=== PATIENT | female | born 1960 | race Caucasian/White ===

== ENCOUNTER 2017-01-21 17:01 | Emergency (ER) | payer OTHER ==
[~2017-01-21] VITALS: Ht 152.4 cm; Wt 93.5 kg
[2017-01-21 17:14] VITALS: BP 144/77; PULSE 92; TEMP 98
[2017-01-21] MEDS ORDERED: EFFEXOR 75M75 MG/TAB PO (17:40)
[2017-01-21] MEDS ORDERED: PRINIVIL20 MG PO (17:40)
[2017-01-21] MEDS ORDERED: VIVLODEX10 MG PO (17:41)
[2017-01-21] MEDS ORDERED: MOTRIN 800800 MG/TAB PO ×2 (17:44→17:59)
[2017-01-21] MEDS ORDERED: FLEXERIL 1010 MG/TAB PO ×2 (17:44→17:59)
== END 2017-01-21 18:03 | disposition home or self-care (01) ==
LOC: COL.ER 17:01
DX: S16.1XXA Strain of muscle, fascia and tendon at neck level, initial encounter (principal); S29.012A Strain of muscle and tendon of back wall of thorax, initial encounter; V43.52XA Car driver injured in collision with other type car in traffic accident, initial encounter; Y92.481 Parking lot as the place of occurrence of the external cause; R40.2412 Glasgow coma scale score 13-15, at arrival to emergency department

== ENCOUNTER 2018-04-11 10:23 | Emergency (ER) | payer OTHER ==
[~2018-04-11] VITALS: Ht 152.4 cm; Wt 94.1 kg
[~2018-04-11 10:23] MED LIST: EFFEXOR 75M75 MG/TAB PO; FLEXERIL 1010 MG/TAB PO; MOTRIN 800800 MG/TAB PO; PRINIVIL20 MG PO; VIVLODEX10 MG PO
[2018-04-11 10:27] VITALS: TEMP 97.8
[2018-04-11] MEDS ORDERED: CYMBALTA 20MG20 MG PO (10:37)
[2018-04-11] MEDS ORDERED: LODINE400 MG (10:41)
[2018-04-11] MEDS ORDERED: FLEXERIL 1010 MG/TAB PO (11:39)
[2018-04-11 11:45] VITALS: BP 138/69; PULSE 75
== END 2018-04-11 11:45 | disposition home or self-care (01) ==
LOC: COL.ER 10:23
DX: M54.2 Cervicalgia (principal); M62.830 Muscle spasm of back
CPT/HCPCS: J1885